=== PATIENT | female | born 1995 | race Caucasian/White ===

== ENCOUNTER 2017-08-30 13:33 | Emergency (ER) | payer OTHER ==
--- NOTE | 2017-08-30 14:18 | ER Document Report ---
HPI - HPI Patient complains to provider of: bump lower right lip Onset: Other - more than 1 week ago, worse today Pain Level: 4 Context: 21 yo female with bump inside right lower lip for over 1 week. Won't go away. Associated Symptoms: None Exacerbated by: Denies Relieved by: Denies - ROS ROS below otherwise negative: Yes Systems Reviewed and Negative: Yes All other systems reviewed and negative - REPRODUCTIVE Reproductive: DENIES: : Past Medical History - General Information source: Patient - Social History Smoking Status: Never Smoker Frequency of alcohol use: None Drug Abuse: None Lives with: Family Family History: Reviewed & Not Pertinent Skin Medical History: Reports Hx Cellulitis Psychiatric Medical History: Reports: Hx Attention Deficit Hyperactivity Disorder - Immunizations Immunizations up to date: Yes Hx Diphtheria, Pertussis, Tetanus Vaccination: Yes Vertical Provider Document - CONSTITUTIONAL Agree With Documented VS: Yes Exam Limitations: No Limitations General Appearance: No Apparent Distress - INFECTION CONTROL TRAVEL OUTSIDE OF THE [place] IN LAST 30 DAYS: No - HEENT HEENT: Normocephalic Notes: mucoid cyst right lower lip buccal mucosa, 4mm - NECK Neck: Supple. negative: Lymphadenopathy-Left, Lymphadenopathy-Right - NEURO Level of Consciousness: Awake - DERM Notes: see above Course - Vital Signs Vital signs: Temp Pulse Resp BP Pulse Ox 98.5 F 81 16 118/71 99 08/30/17 13:57 08/30/17 13:57 08/30/17 13:57 08/30/17 13:57 08/30/17 13:57 Procedures - Incision and Drainage Lower Face Time completed: 16:33 - mouth Type: Simple Anesthetic type: 1% Lidocaine mL's of anesthetic: 1 Blade size: 11 Incision Method: Incision made by scalpel Amount/type of drainage: all serous cyst Discharge - Discharge Clinical Impression: lip mucosal cyst I and D Condition: Good Disposition: HOME, SELF-CARE Instructions: Acetaminophen, Post Incision and Drainage Additional Instructions: salt water rinse mouth see the oral surgeon if recurs for removal of the cyst. [address] [place] [id number] Referrals: RANDY OWEN MD [Primary Care Provider] - Follow up as needed
[2017-08-30 16:46] VITALS: BP 112/67
== END 2017-08-30 16:43 | disposition home or self-care (01) ==
LOC: ER 13:33
PROC: 0C91XZZ Drainage of Lower Lip, External Approach (ICD-10-PCS; principal; 2017-08-30)
DX: K13.0 Diseases of lips (principal)
CPT/HCPCS: 99283

== ENCOUNTER 2018-03-19 20:34 | Emergency (ER) | payer OTHER ==
[2018-03-19 21:49] LABS: APPEARANCE,URINE SLIGHTLY-CLOUDY; BILIRUBIN,URINE NEGATIVE (NEGATIVE); COLOR,URINE YELLOW; GLUCOSE, URINE NEGATIVE (NEGATIVE); KETONES,URINE NEGATIVE (NEGATIVE); LEUKOCYTE ESTERASE,URINE TRACE (NEGATIVE); NITRITE,URINE NEGATIVE (NEGATIVE); PROTEIN,URINE NEGATIVE (NEGATIVE); URINE SPECIFIC GRAVITY 1.025; UROBILINOGEN,URINE NEGATIVE mg/dL (<2.0)
--- NOTE | 2018-03-19 22:27 | ER Document Report ---
ED General - General Chief Complaint: Abdominal Pain Stated Complaint: ABDOMINAL PAIN Time Seen by Provider: 03/19/18 21:24 Notes: Patient is a 22-year-old female who presents to the emergency department with right lower abdominal pain. She states this pain has been going on and off for the past month. Her next menstrual cycle is supposed to start tomorrow. She states she has normal menstrual cycles. She has not been sexually active for the past 6 months. She was treated for chlamydia back in September. TRAVEL OUTSIDE OF THE [place] IN LAST 30 DAYS: No - Related Data Allergies/Adverse Reactions: No Known Allergies Allergy (Verified 03/19/18 21:26) Past Medical History - Social History Smoking Status: Never Smoker Frequency of alcohol use: None Drug Abuse: None Family History: Reviewed & Not Pertinent Renal/ Medical History: Denies: Hx Peritoneal Dialysis Skin Medical History: Reports Hx Cellulitis Psychiatric Medical History: Reports: Hx Attention Deficit Hyperactivity Disorder - Immunizations Immunizations up to date: Yes Hx Diphtheria, Pertussis, Tetanus Vaccination: Yes Physical Exam - Vital signs Vitals: Temp Pulse Resp BP Pulse Ox 98.7 F 87 17 141/78 H 100 03/19/18 20:49 03/19/18 20:49 03/19/18 20:49 03/19/18 20:49 03/19/18 20:49 - Notes Notes: PHYSICAL EXAMINATION: GENERAL: Appears well, healthy, well-nourished, no acute distress. HEAD: Normocephalic, atraumatic. EYES: PERRL, conjunctiva normal, all extraocular movements intact, sclera nonicteric ENT: Moist mucous membranes. NECK: Supple, no noticeable swelling, redness, rash. Normal range of motion. LUNGS: Equal breath sounds bilaterally and clear to auscultation. No wheezes rales or rhonchi. CARDIOVASCULAR: S1-S2, regular rate, regular rhythm. Radial pulses 2+, normal. ABDOMEN: right lower quadrant tenderness. No rebound tenderness noted. EXTREMITIES: Normal strength and range of motion, no pitting or edema. No cyanosis. NEUROLOGICAL: Moves all extremities upon command. Strength 5/5 in all extremities. PSYCH: Normal mood, normal affect. SKIN: Warm, dry. No rash, lesions, ulcerations noted. Normal skin turgor. TAX TECHNICIAN: No masses or discharge noted. Course - Re-evaluation Re-evalutation: Based off patient's physical exam and history, differential diagnosis includes ovarian cyst, bacterial vaginosis, gonorrhea, chlamydia or any pelvic etiology. She will be sent for a transvaginal ultrasound and I will perform a pelvic exam. 03/20/18 00:51 Patient's laboratory results are negative at this time. I do not suspect she has any life-threatening etiology at this time. Her mother is at bedside and states that she does have a history of a hysterectomy with a diagnosis of endometriosis. I have discussed with the patient and her mother the results of her labs and the transvaginal ultrasound. It is unclear as to what is causing her abdominal pain, therefore I have suggested she follow-up with [facility] for further diagnostic studies. The patient is in agreement with this. She is stable for discharge. Verbal discharge instructions were given to the patient. She verbalized understanding. - Vital Signs Vital signs: Temp Pulse Resp BP Pulse Ox 98.2 F 79 18 121/70 98 03/20/18 01:01 03/20/18 01:01 03/20/18 01:01 03/20/18 01:01 03/20/18 01:01 - Laboratory Laboratory results interpreted by me: 03/19/18 21:30 Ur Leukocyte Esterase TRACE H Discharge - Discharge Clinical Impression: Abdominal pain Qualifiers: Abdominal location: right lower quadrant Qualified Code(s): R10.31 - Right lower quadrant pain Condition: Stable Disposition: HOME, SELF-CARE Additional Instructions: You have been seen in the emergency department for abdominal pain. It is unclear as to what is the cause of your abdominal pain. Your laboratory studies are normal at this time. Please follow-up with [facility] on Thursday to have further evaluation. If you feel your pain is getting worse, you develop a fever of 100.4 F or higher, or have any concerns that are worrisome to you, these return to the emergency department. Referrals: [facility] [Provider Group] - 03/22/18
--- NOTE | 2018-03-19 23:18 | RADIOLOGY REPORT (SQ) ---
EXAM DESCRIPTION: US TRANSVAGINAL COMPLETED DATE/TME: 03/19/2018 22:21 CLINICAL HISTORY: 22 years, Female, right lower abdominal pain COMPARISON: None. TECHNIQUE: LIMITATIONS: None. FINDINGS: There are no fibroids. The endometrial stripe measures 12.7 mm. The ovaries are unremarkable and contains small follicular cysts. Blood flow was demonstrated in both ovaries with Doppler. No free fluid. IMPRESSION: No sonographic abnormality. 2010 [employer]- All Rights Reserved
[2018-03-20 00:08] LABS: EPITHELIALS (WET MOUNT) 4+ EPITHELIALS SEEN; RBCS (WET MOUNT) NO RBCS SEEN; T.VAGINALIS (WET MOUNT) NO TRICHOMONAS SEEN; WBCS (WET MOUNT) NO WBCS SEEN; YEAST (WET MOUNT) NO YEAST SEEN
[2018-03-20 01:04] VITALS: BP 121/70
[2018-03-20 01:35] LABS: CHLAM PCR NOT DETECTED (NOT DETECT); GON PCR NOT DETECTED (NOT DETECT)
== END 2018-03-20 01:03 | disposition home or self-care (01) ==
LOC: ER 20:34
DX: R10.31 Right lower quadrant pain (principal)
CPT/HCPCS: 76830; 81001; 81025; 87210; 87491; 87591; 93976; 99284

== ENCOUNTER 2018-08-31 14:09 | Emergency (ER) | payer OTHER ==
[2018-08-31 14:34] VITALS: BP 114/75
== END 2018-08-31 16:29 | disposition home or self-care (01) ==
LOC: ER 14:09
DX: Z53.21 Procedure and treatment not carried out due to patient leaving prior to being seen by health care provider (principal)